=== PATIENT | female | born 1970 | race Caucasian/White ===

== ENCOUNTER 2017-02-17 12:35 | Emergency (ER) | payer OTHER ==
[~2017-02-17] VITALS: Ht 162.6 cm; Wt 83.9 kg
[~2017-02-17 12:35] MED LIST: AEROCHAMBER1 DEV IH; ALBUTEROL0.09 MG/Ac IH; ALBUTEROL2 PUFFS/17 IN; AMOXIL500 M1 PO; ANTIVERT/2525 MG PO; ASPIRIN CHILDRE81 MG PO; ATENOLOL100 MG PO; ATENOLOL50 MG PO; AUGMENTIN1 TA1 PO; AZITHROMYCIN250 M1 PO; BENTYL10 M1 PO; BIAXIN500 MG PO; CALCIUM LACTAT100 MG PO; CIPRO 500MG TA500 MG PO; CYCLOBENZ5 MG PO; DOXYCYCLINE HY100 M4 PO; FLEXERIL10 MG PO; IBU800 MG PO; IMODIUM 2MG. CAP2 MG PO; KEFLEX 500MG.500 MG PO; LEVAQUIN500 MG PO; LISINOPRIL 10MG10 MG PO; LISINOPRIL 20MG20 MG PO; LISINOPRIL AND1 TAB PO; LORTAB 5/500 501 TAB PO; MECLIZINE 25MG25 MG PO; MEDROL 4MG. DOSE4 MG PO; MOTRIN800 MG PO; NEXIUM40 MG PO; OMNICEF 300 MG300 MG PO; PEPCID 20MG TAB20 MG PO; PEPCID20 MG PO; PHENERGAN 25MG.25 M1 PO; PHENERGAN 25MG.25 MG PR; PLAVIX75 MG PO; PREDNISONE 20MG20 MG PO; PROVENTIL0.09 MG/A1 IH; STERAPRED DS10 MG PO; TESSALON PERLE100 M1 PO; TESSALON PERLE100 MG PO; TESSALON PERLE200 MG PO; ULTRAM50 MG PO; VICODIN 5/500 T1 TAB PO; ZESTORETIC 12.51 TA1 PO; ZITHROMAX Z PA250 MG PO; ZOFRAN ODT8 MG PO; ZOFRAN4 MG PO
--- NOTE | 2017-02-17 13:01 | Urgent Treatment Center Report ---
History of Present Issue Date/Time Seen by Provider 02/17/17 1254 Visit Reason Pt arrived:Walked Presenting Problem:PT IS C/O COUGH, SORE THROAT, N/V, AND PAIN IN BOTH EARS X2 DAYS. Location if Accident: Onset of symptoms date/time:/ or onset unknown for:MEDICAL HX UNKNOWN Have you (or family members/close friends) recently traveled outside the [place]? N If Yes, where/when: Have you had exposure to infectious disease within the past month? TB? Other? Specify: c/o sore throat, kenya ear pain, and a nonprod cough that has led to vomiting at times. Symptoms started yesterday. 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 Hasn't taken or tried anything for symptoms. No known sick contacts. Denies fever, aches, abdominal pain, diarrhea, ear drainage, change in hearing, SOA, wheezing. Hx of HTN. Reports last 2-3 days BP high 90's/60's. Didn't take lisinopril this morning due to coughing that leads to vomiting at times. Denies CP, headache, vision change. Source patient Exam Limitations no limitations ALLERGIES Coded Allergies: Iodinated Contrast- Oral and IV Dye (Iodinated Contrast Media - IV Dye) (Mild, 11/01/15) codeine (Mild, 11/01/15) venom-honey bee (bee venom (honey bee)) (Mild, 11/01/15) Home Medications Active Scripts Azithromycin (Zithromycin (Z-BEN) 250MG Tab) 250 MG PO DAILY #6 TAB Prov: 01/14/17 Methylprednisolone (Medrol Dose Ben) 4 MG PO UD #1 BEN Prov: 01/14/17 Ondansetron (Zofran 8MG Odt) 8 MG PO Q8HP PRN NAUSEA AND VOMITING #12 ODT Prov: 01/14/15 ALBUTEROL (Proventil Hfa Inhaler) 1-2 PUFF IH Q4-6H PRN PRN SOA, wheezing #1 CAN Prov: 11/19/16 Reported Medications Esomeprazole Magnesium (Nexium 40MG Cap) 40 MG PO DAILY Clopidogrel Bisulfate (Plavix) 75 MG PO DAILY Calcium (Calcium Lactate) 100 MG PO DAILY Hydrochlorothiazide/Lisinopr (Zestoretic 12.5 Mg-20 Mg) 1 TAB PO DAILY #30 History Medical History General CAD? No Angina: Yes [place]: No Hypertension? Yes Hyperlipidemia? Yes CHF? No DVT? No PE? No COPD? No Asthma? No Anemia? No GERD? No Gastric ulcers? No GI Bleed? No Hernia? No Thyroid Problems? No Hypothyroidism? No CVA? No Seizures? No Diabetes? No Renal Insuffiency? No UTI? No Stones? No BPH? No GB Disease: No Nephritic Syndrome? No Asplenia? No Hepatitis? No Sickle Cell Disease? No Arthritis? No Migraines? No Cataracts? No Glaucoma? No MRSA? No HIV? No TB? No Anxiety? No Depression? No Cancer? No More? No Immunization HX DT/Tetanus Unknown Flu [id number] Pneumonia Unknown Surgical Hx Previous Surgery?Y TUBAL LIGATION ABSCESSED TOOTH I&D Family History Family HX Diabetes No CAD Yes Hypertension Yes Hyperlipidemia Yes Cancer No TB No Social History Smoking Hx Smoker: Current Every Day Smoker Tobacco: Yes Type Cigarettes Packs/day 1 1/2 - 2 Packs Alcohol Alcohol: No Review of Systems All Other Systems Reviewed and Negative Constitutional see HPI Eyes denies drainage ENT see HPI. denies: throat swelling. Respiratory see HPI Cardiovascular see HPI, denies palpitations Gastrointestinal see HPI Musculoskeletal see HPI Skin denies rash Psychiatric/Neurological see HPI Physical Exam Vital Signs Vital Signs Date Time Temp Pulse Resp B/P Pulse O2 O2 Flow FiO2 Ox Delivery Rate 02/17 1249 97.9 81 20 175/124 98 General Appearance no apparent distress, dishelved appearance Eye Exam - bilateral eye normal exam Ear, Nose, Throat kenya EACs normal, kenya TMs w/ clear fluid bubbles but no bulging , pearly xavier; mild nasal congestion; normal pharynx Neck non-tender, supple Respiratory Status No: respiratory distress, use of accessory muscles, pain on inspiration, pain on expiration, productive cough, non productive cough. Lung Sounds anterior: lungs clear. posterior: lungs clear. bilateral: lungs clear. Cardiovascular regular rate/rhythm, no peripheral edema, no murmur Gastrointestinal normal bowel sounds, non tender, soft Neurologic alert, oriented x 3 Skin intact Lymphatic no adenopathy Medical Decision Making LABS/Meds/Orders Pt receiving controlled substance in ED? No Results/Orders Laboratory Tests 02/17/17 1201: Group A Strep Screen NOT DETECTED Orders Procedure Date/time Status [facility] STREP SCREEN 02/17 1246 Complete Departure Departure Time of Disposition 1310 Disposition DC Home or Self Care(routine) Clinical Impression Primary Impression: Upper respiratory virus Secondary Impressions: Encounter to obtain excuse from work High blood pressure Qualifiers: Hypertension type: unspecified Qualified Code: I10 - Essential ( primary) hypertension Condition STABLE Referrals NO REFERRAL Follow up with primary care immediately for new or worsening symptoms. If you can not get in there, return to [facility] or ER. FU with primary care if no improvement over the next 48-72 hours. Patient Instructions DI for High Blood Pressure, DI for Viral Upper Respiratory Infection -- Adult Additional Instructions * You BP is extremely high. You need to go home and try to take your lisinopril. You are at risk for things like heart attack, stroke, as we discussed today. * Continue to monitor your BP at home and if remains >140/90 then you need to seek treatment. * Be careful what cold medications you take due to your high blood pressure. no decongestants like sudafed or anything w/ D on the end, like claritin D * No sign of bacterial infection. Likely viral. Virus can take 7-14 days to run their course. Cover your sneezes, cough, wash your hands but it is ok to work unless you have a fever. * Monitor Temp. FU if fevers develop * Encourage fluids, water, gatorade, powerade, pedialyte if /toddler/child * warm salt water gargles * warm fluids * sore throat lozenges * sleep elevated * humidifier/vaporizer * * Your throat swab was sent for culture. Those results are typically sent to your primary care. Be sure to follow up in 2-3 days if no improvement so they can review those results and treat if necessary. If you don't have primary care, I recommend you get one but in the mean time, you will have to return to a walk in clinic. * Start claritin 10mg daily * Tessalon Perles will not cause drowsiness but use at bedtime to help stop cough so that you can get some rest Discharge Counseling Counseled pt/family regarding diagnosis, test results, medications/RX, home care, follow up needs Prescriptions Current Visit Scripts Loratadine (Claritin 10MG) 10 MG PO DAILY #30 TAB Benzonatate 200 MG PO TIDP PRN cough #15 SGL at 1328
[2017-02-17] MEDS ORDERED: BENZONATATE200 MG PO (13:16)
[2017-02-17] MEDS ORDERED: CLARITIN 10MG T10 MG PO (13:16)
[2017-02-17 13:24] VITALS: BP 175/124
== END 2017-02-17 13:25 | disposition home or self-care (01) ==
LOC: UTC 12:35 → EDBD 12:38 → UTC 13:25
DX: J06.9 Acute upper respiratory infection, unspecified (principal); F17.210 Nicotine dependence, cigarettes, uncomplicated; I10 Essential (primary) hypertension; E78.5 Hyperlipidemia, unspecified; Z79.02 Long term (current) use of antithrombotics/antiplatelets; Z79.899 Other long term (current) drug therapy

== ENCOUNTER → 2017-03-24 | Outpatient (CLI) | payer OTHER ==
[~2017-03-24] MED LIST changes: +BENZONATATE200 MG PO; +CLARITIN 10MG T10 MG PO
--- NOTE | 2017-03-24 12:23 | RADIOLOGY REPORT PS360 ---
ARTERIAL/TUV-YNJVAHTPHFY-LGH CLAUDICATION, current smoker, hypertension, peripheral vascular disease, bilateral claudication, left rest pain ORDERING PHYSICIAN: HOLLY LOMAS MD PATIENT AGE: 46 years TECHNIQUE: Segmental pressures obtained of both right and left leg. These are compared to brachial blood pressure to yield index at each level sampled including summary TANK. The data sheets from the procedure are available in PACS FINDINGS Rest study only performed today No prior studies available for comparison. Blood pressures reported are in millimeters mercury. RIGHT LEG TANK = 1.1 . Brachial BP: 164 Thigh BP: 193 Calf BP: 193 Ankle PT: 200 Ankle DP : 195 Digit =167 LEFT LEG TANK = 1.2 Brachial BPD: 176 Thigh BP: 185 Calf BP: 204 Ankle PT:202 Ankle DP: 201 Digit = 140 Pulses and waveforms: Normal IMPRESSION: The ABIs as reported above are within normal limits. Waveforms and pulses are also unremarkable.
--- NOTE | 2017-03-25 12:52 | RADIOLOGY REPORT PS360 ---
PROCEDURE: 2-D M-mode and color Doppler study INDICATIONS FOR THE TEST: Chest pain+ COPD+ Heart Murmur+ Tobacco Smoking+ Palpitations Fatigue Syncope Edema Hypertension+Diabetes Mellitus Rheumatic Fever SOB ADAMES+Obesity+Hyperlipidemia+ Family History HD Additional History PVD, CAD (1 stent), Hx of TIA PATIENT INFORMATION HEIGHT: 64 WEIGHT: 180 GENDER: Female B/P: 164/110 2-D/M-MODE INTERPRETATION: 2-D MEASUREMENTS OBSERVED VALUES IN CMS Right Ventricular Dimension (RVDd) 2.3 Interventricular Septum (Thickness)(IVsd) 1.5 Left Ventricular Internal Dimensions(LVIDd) 4.0 Left Ventricular Posterior Wall (Thickness)(LVPWd) 1.4 Aortic Root 2.9 Aortic Cusp Separation 2.0 Left Atrial Dimensions (LAD) 3.3 2D 1. Left atrium is qualitatively mildly enlarged, left ventricle is normal size, there is mild concentric left ventricular hypertrophy, visually estimated ejection fraction 55% with no obvious regional wall motion abnormality. 2. The right atrium and right ventricle are normal size and contractility. 3. The aortic valve is minimally thickened and fibrosed. 4. The mitral and tricuspid valve leaflets are minimally thickened. 5. The pulmonic valve is poorly visualized. 6. No significant pericardial effusion noted. DOPPLER INTERROGATION: Doppler interrogation of the aortic, mitral and tricuspid valvular presence of mild mitral and tricuspid regurgitation, tricuspid regurgitant jet velocity insufficient for calculation of the right ventricular systolic pressure, grade 1 diastolic dysfunction seen with tissue Doppler evidence of raised left atrial pressure. CONCLUSION: 1. Mildly enlarged left atrium, normal left ventricular size, mild concentric left ventricular hypertrophy, visually estimated ejection fraction 55% with no obvious regional wall motion abnormality, grade 1 diastolic dysfunction seen with tissue Doppler evidence of raised left atrial pressure. 2. Mild mitral and tricuspid regurgitation. 3. No significant pericardial effusion noted.
--- NOTE | 2017-03-25 15:02 | RADIOLOGY REPORT PS360 ---
History and Indications: Hypertension, tobacco use, shortness of breath and fatigue Procedure: Patient received a 0.4 mg of Lexiscan, resting heart rate was 74 bpm resting blood pressure 162/107, with Lexiscan maximum heart rate achieved was 112 bpm which is less than 85% of the maximum predicted heart rate and a blood pressure was 163/104. With Lexiscan patient complained of shortness of breath and nausea. Electrocardiogram: Resting electrocardiogram showed sinus rhythm nonspecific ST-T changes, with Lexiscan there is less than 1.[address] segment depression noted from the baseline EKG. The EKG portion of the Lexiscan Myoview is nondiagnostic. Cardiac stress and resting SPECT images: Cardiac stress and rest spect images were obtained using technetium 99 Myoview 10.6 mCi at rest and 31.0 mCi at stress, gated SPECT further analysis of segmental wall motion and calculation of the ejection fraction also done. Cardiac stress and rest SPECT images show decreased tracer activity in the anterior and anteroapical wall which improves on the resting images suggestive of reversible ischemia. Computer derived ejection fraction is over 65% with no obvious regional wall motion abnormality, right ventricle is mildly enlarged with normal contractility. Conclusion: 1. The EKG portion of the Lexiscan is nondiagnostic. 2. Scintigraphic evidence of mild reversible ischemia involving the anteroapical and inferior wall. Computer derived ejection fraction is over 65% with no obvious regional wall motion abnormality, right ventricle is mildly enlarged with normal contractility. 3. Abnormal Lexiscan Myoview study.
== END ==
LOC: RAD 06:07
DX: I20.9 Angina pectoris, unspecified (principal); I70.213 Atherosclerosis of native arteries of extremities with intermittent claudication, bilateral legs; I25.10 Atherosclerotic heart disease of native coronary artery without angina pectoris; I11.9 Hypertensive heart disease without heart failure; E78.5 Hyperlipidemia, unspecified; I65.23 Occlusion and stenosis of bilateral carotid arteries; I63.9 Cerebral infarction, unspecified; F17.200 Nicotine dependence, unspecified, uncomplicated; Z95.5 Presence of coronary angioplasty implant and graft
CPT/HCPCS: A9502; J2785

== ENCOUNTER 2017-05-15 09:00 | Emergency (ER) | payer OTHER ==
[~2017-05-15] VITALS: Ht 162.6 cm; Wt 81.6 kg
[2017-05-15] MEDS ORDERED: AMOXICOT500 MG PO (09:24)
[2017-05-15] MEDS ORDERED: DELSYM30 MG/5 ML PO (09:24)
--- NOTE | 2017-05-15 09:25 | Urgent Treatment Center Report ---
History of Present Issue Date/Time Seen by Provider 05/15/17 0915 Visit Reason Pt arrived:Walked Presenting Problem:PT C/O COUGH, SORE THROAT, CHILLS, LOW GRADE FEVER. Location if Accident: Onset of symptoms date/time:05/14/1701/21/1800 or onset unknown for: Have you (or family members/close friends) recently traveled outside the [place]? N If Yes, where/when: Have you had exposure to infectious disease within the past month? TB? Other? Specify: Source patient, RN notes reviewed Exam Limitations no limitations Comment 46-year-old female presents today with complaints of sore throat, cough, and low -grade fever for a couple of days. 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 ALLERGIES Coded Allergies: Iodinated Contrast- Oral and IV Dye (Iodinated Contrast Media - IV Dye) (Mild, 11/01/15) codeine (Mild, 11/01/15) venom-honey bee (bee venom (honey bee)) (Mild, 11/01/15) Home Medications Active Scripts Ondansetron (Zofran 8MG Odt) 8 MG PO Q8HP PRN NAUSEA AND VOMITING #12 ODT Prov: 01/14/15 Loratadine (Claritin 10MG) 10 MG PO DAILY #30 TAB Prov: 02/17/17 Reported Medications Esomeprazole Magnesium (Nexium 40MG Cap) 40 MG PO DAILY Clopidogrel Bisulfate (Plavix) 75 MG PO DAILY Calcium (Calcium Lactate) 100 MG PO DAILY Hydrochlorothiazide/Lisinopr (Zestoretic 12.5 Mg-20 Mg) 1 TAB PO DAILY #30 History Medical History General CAD? No Angina: Yes [place]: No Hypertension? Yes Hyperlipidemia? Yes CHF? No DVT? No PE? No COPD? No Asthma? No Anemia? No GERD? No Gastric ulcers? No GI Bleed? No Hernia? No Thyroid Problems? No Hypothyroidism? No CVA? No Seizures? No Diabetes? No Renal Insuffiency? No UTI? No Stones? No BPH? No GB Disease: No Nephritic Syndrome? No Asplenia? No Hepatitis? No Sickle Cell Disease? No Arthritis? No Migraines? No Cataracts? No Glaucoma? No MRSA? No HIV? No TB? No Anxiety? No Depression? No Cancer? No More? 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 Respiratory see HPI, cough Physical Exam Vital Signs Vital Signs Date Time Temp Pulse Resp B/P Pulse O2 O2 Flow FiO2 Ox Delivery Rate 05/15 909 98.2 89 20 168/113 96 - WBC >12,000 or <4,000 or 10% bands? 2 or more SIRS Criteria Met? B/P:168/113 MAP:131 Creatinine >2.0? UA output<0.5ml/kg/hr for 2 hrs? Platelet count >100,000? Lactate >2.0mmol/1? INR >1.2 or PTT > than 60 sec? Evidence of Organ Dysfunction? Provider documented clinical suspician of infection? Sepsis Criteria Count: 1 Sepsis Risk: General Appearance normal appearance, no apparent distress Eye Exam - bilateral eye normal exam, bilateral eye PERRL, bilateral eye EOMI Ear, Nose, Throat abnormal TM (R), abnormal TM (L), pharyngeal erythema Neck normal inspection, full range of motion Respiratory Status Yes: trachea midline, chest symmetrical, non tender chest. No: respiratory distress. Lung Sounds bilateral: normal breath sounds, lungs clear. Cardiovascular normal exam, regular rate/rhythm Peripheral Pulses Pulses normal Yes Neurologic alert, normal exam, oriented x 3 Medical Decision Making LABS/Meds/Orders Pt receiving controlled substance in ED? No Results/Orders Laboratory Tests 05/15/17 0912: Group A Strep Screen NOT DETECTED Orders Procedure Date/time Status [facility] STREP SCREEN 05/15 912 Complete Departure Departure Time of Disposition 918 Disposition DC Home or Self Care(routine) Clinical Impression Primary Impression: Otitis media Qualifiers: Otitis media type: unspecified Laterality: bilateral Qualified Code : H66.93 - Otitis media, unspecified, bilateral Secondary Impressions: Cough, Sore throat Condition STABLE Patient Instructions Cough, Middle Ear Infection, Sore Throat Additional Instructions Salt water gargles every 2 as needed Contact precautions discussed with patient Follow-up with PCP this week if no improvement If symptoms worsen or do not improve return or be seen in the ER No work until Wednesday Discharge Counseling Counseled pt/family regarding diagnosis, test results, home care, follow up needs Prescriptions Current Visit Scripts Amoxicillin (Amoxicillin 500MG) 500 MG PO BID 10 Days Dextromethorphan Polistirex (Delsym) 5 ML PO Q12H 5 Days at 9818
--- NOTE | 2017-05-15 09:25 | Urgent Treatment Center Report ---
History of Present Issue Date/Time Seen by Provider 05/15/17 0915 Visit Reason Pt arrived:Walked Presenting Problem:PT C/O COUGH, SORE THROAT, CHILLS, LOW GRADE FEVER. Location if Accident: Onset of symptoms date/time:05/14/1701/21/1800 or onset unknown for: Have you (or family members/close friends) recently traveled outside the [place]? N If Yes, where/when: Have you had exposure to infectious disease within the past month? TB? Other? Specify: Source patient, RN notes reviewed Exam Limitations no limitations Comment 46-year-old female presents today with complaints of sore throat, cough, and low -grade fever for a couple of days. 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 ALLERGIES Coded Allergies: Iodinated Contrast- Oral and IV Dye (Iodinated Contrast Media - IV Dye) (Mild, 11/01/15) codeine (Mild, 11/01/15) venom-honey bee (bee venom (honey bee)) (Mild, 11/01/15) Home Medications Active Scripts Ondansetron (Zofran 8MG Odt) 8 MG PO Q8HP PRN NAUSEA AND VOMITING #12 ODT Prov: 01/14/15 Loratadine (Claritin 10MG) 10 MG PO DAILY #30 TAB Prov: 02/17/17 Reported Medications Esomeprazole Magnesium (Nexium 40MG Cap) 40 MG PO DAILY Clopidogrel Bisulfate (Plavix) 75 MG PO DAILY Calcium (Calcium Lactate) 100 MG PO DAILY Hydrochlorothiazide/Lisinopr (Zestoretic 12.5 Mg-20 Mg) 1 TAB PO DAILY #30 History Medical History General CAD? No Angina: Yes [place]: No Hypertension? Yes Hyperlipidemia? Yes CHF? No DVT? No PE? No COPD? No Asthma? No Anemia? No GERD? No Gastric ulcers? No GI Bleed? No Hernia? No Thyroid Problems? No Hypothyroidism? No CVA? No Seizures? No Diabetes? No Renal Insuffiency? No UTI? No Stones? No BPH? No GB Disease: No Nephritic Syndrome? No Asplenia? No Hepatitis? No Sickle Cell Disease? No Arthritis? No Migraines? No Cataracts? No Glaucoma? No MRSA? No HIV? No TB? No Anxiety? No Depression? No Cancer? No More? 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 Respiratory see HPI, cough Physical Exam Vital Signs Vital Signs Date Time Temp Pulse Resp B/P Pulse O2 O2 Flow FiO2 Ox Delivery Rate 05/15 909 98.2 89 20 168/113 96 - WBC >12,000 or <4,000 or 10% bands? 2 or more SIRS Criteria Met? B/P:168/113 MAP:131 Creatinine >2.0? UA output<0.5ml/kg/hr for 2 hrs? Platelet count >100,000? Lactate >2.0mmol/1? INR >1.2 or PTT > than 60 sec? Evidence of Organ Dysfunction? Provider documented clinical suspician of infection? Sepsis Criteria Count: 1 Sepsis Risk: General Appearance normal appearance, no apparent distress Eye Exam - bilateral eye normal exam, bilateral eye PERRL, bilateral eye EOMI Ear, Nose, Throat abnormal TM (R), abnormal TM (L), pharyngeal erythema Neck normal inspection, full range of motion Respiratory Status Yes: trachea midline, chest symmetrical, non tender chest. No: respiratory distress. Lung Sounds bilateral: normal breath sounds, lungs clear. Cardiovascular normal exam, regular rate/rhythm Peripheral Pulses Pulses normal Yes Neurologic alert, normal exam, oriented x 3 Medical Decision Making LABS/Meds/Orders Pt receiving controlled substance in ED? No Results/Orders Laboratory Tests 05/15/17 0912: Group A Strep Screen NOT DETECTED Orders Procedure Date/time Status [facility] STREP SCREEN 05/15 912 Complete Departure Departure Time of Disposition 918 Disposition DC Home or Self Care(routine) Clinical Impression Primary Impression: Otitis media Qualifiers: Otitis media type: unspecified Laterality: bilateral Qualified Code : H66.93 - Otitis media, unspecified, bilateral Secondary Impressions: Cough, Sore throat Condition STABLE Patient Instructions Cough, Middle Ear Infection, Sore Throat Additional Instructions Salt water gargles every 2 as needed Contact precautions discussed with patient Follow-up with PCP this week if no improvement If symptoms worsen or do not improve return or be seen in the ER No work until Wednesday Discharge Counseling Counseled pt/family regarding diagnosis, test results, home care, follow up needs Prescriptions Current Visit Scripts Amoxicillin (Amoxicillin 500MG) 500 MG PO BID 10 Days Dextromethorphan Polistirex (Delsym) 5 ML PO Q12H 5 Days at 2333
[2017-05-15 09:28] VITALS: BP 113/88
== END 2017-05-15 09:30 | disposition home or self-care (01) ==
LOC: UTC 09:00
DX: H66.93 Otitis media, unspecified, bilateral (principal); I10 Essential (primary) hypertension; F17.210 Nicotine dependence, cigarettes, uncomplicated